=== PATIENT | male | born 1945 | race Caucasian/White ===

== ENCOUNTER 2018-05-21 19:43 | Emergency (ER) | payer MEDICARE, BC ==
[~2018-05-21] VITALS: Ht 188 cm; Wt 81.8 kg
[2018-05-21 19:46] VITALS: Ht 188 cm; Wt 81.8 kg
== END 2018-05-21 22:15 ==
LOC: D.ER 19:43
DX: I46.9 Cardiac arrest, cause unspecified (principal)